=== PATIENT | female | born 1990 ===

== ENCOUNTER 2022-04-01 13:44 | Outpatient (CLI) | payer OTHER | END 2022-04-01 14:45 | disposition home or self-care (01) | LOC: PRENATAL 13:44 | PROVIDERS: ATTEND Obstetrics & Gynecology Maternal & Fetal Medicine | DX: O36.80X0 Pregnancy with inconclusive fetal viability, not applicable or unspecified (principal); Z36 Encounter for antenatal screening of mother; O34.219 Maternal care for unspecified type scar from previous cesarean delivery; Z3A.12 12 weeks gestation of pregnancy ==

== ENCOUNTER 2022-05-29 08:00 | Outpatient (CLI) | payer OTHER | END 2022-05-29 09:12 | disposition home or self-care (01) | LOC: PRENATAL 08:00 | PROVIDERS: ATTEND Obstetrics & Gynecology Maternal & Fetal Medicine | DX: O35.3XX0 Maternal care for (suspected) damage to fetus from viral disease in mother, not applicable or unspecified (principal); O34.219 Maternal care for unspecified type scar from previous cesarean delivery; O99.210 Obesity complicating pregnancy, unspecified trimester; Z3A.20 20 weeks gestation of pregnancy ==

== ENCOUNTER 2022-08-21 08:23 | Outpatient (CLI) | payer OTHER | END 2022-08-21 09:25 | disposition home or self-care (01) | LOC: PRENATAL 08:23 | PROVIDERS: ATTEND Obstetrics & Gynecology Maternal & Fetal Medicine | DX: O26.849 Uterine size-date discrepancy, unspecified trimester (principal); O36.8199 Decreased fetal movements, unspecified trimester, other fetus; O34.219 Maternal care for unspecified type scar from previous cesarean delivery; Z3A.32 32 weeks gestation of pregnancy ==

== ENCOUNTER 2022-10-01 08:45 | Inpatient (IN) | payer OTHER ==
[~2022-10-01] VITALS: Ht 154.9 cm; Wt 3.6 kg
[2022-10-05] MEDS ORDERED: IRON325 MG PO (10:04)
[2022-10-05] MEDS ORDERED: COMPLETE NATAL1 EACH PO (10:05)
== END 2022-10-08 13:50 | disposition home or self-care (01) | DRG 785 ==
LOC: OB/GYN 10-05 08:45 → O/R 10-05 09:07 → OB/GYN 10-05 09:07
PROVIDERS: ADMIT Obstetrics & Gynecology; ATTEND Obstetrics & Gynecology
PROC: 0UB70ZZ Excision of Bilateral Fallopian Tubes, Open Approach (ICD-10-PCS; 2022-10-05)
PROC: 4A1HXCZ Monitoring of Products of Conception, Cardiac Rate, External Approach (ICD-10-PCS; 2022-10-05)
PROC: 10D00Z1 Extraction of Products of Conception, Low, Open Approach (ICD-10-PCS; principal; 2022-10-05 12:15)
DX: O34.211 Maternal care for low transverse scar from previous cesarean delivery (principal); Z3A.39 39 weeks gestation of pregnancy; Z37.0 Single live birth; Z20.822 Contact with and (suspected) exposure to COVID-19; Z30.2 Encounter for sterilization